=== PATIENT | female | born 1935 | race Caucasian/White ===

== ENCOUNTER 2023-12-31 08:43 | Emergency (ER) | payer MEDICARE, SELFPAY ==
[2023-12-31] VITALS (7 sets, daily range): BP systolic 174–194; BP diastolic 77–87
[2023-12-31 09:00] LABS: % Basophils 0.7 % (0-2); % Eosinophils 4.1 % (0-6); % Immature Granulocytes 0.2 % (0-0.5); % Lymphocytes 23.1 % (20.5-51.1); % Monocytes 8.7 % (1.7-9.3); % Neutrophils 63.2 % (42.2-75.2); Absolute Eosinophils 0.3 10^3/uL (0-0.7); Absolute Lymphocytes 1.4 10^3/uL (1.2-3.4); Absolute Monocytes 0.5 10^3/uL (0.1-0.6); Absolute Neutrophils 3.8 10^3/uL (1.4-6.5); Hematocrit 34.2 % (37.0-47.0); Hemoglobin 11.5 g/dL (12.0-16.0); Mean Corp Hgb Conc. 33.6 g/dL (33.0-37.0); Mean Corpuscular Hgb 31.3 pg (27.0-31.0); Mean Corpuscular Volume 93.2 fL (81.0-99.0); Mean Platelet Volume 10.5 fL (7.4-10.4); Nucleated Red Blood Cells % 0 %; Platelet Count 206 10^3/uL (130-400); Red Blood Cell Count 3.67 10^6/uL (4.20-5.40); Red Cell Dist. Width 12.3 % (11.5-14.5); White Blood Cell Count 6.1 10^3/uL (4.8-10.8)
--- NOTE | 2023-12-31 09:09 | ED.GENMED ---
History of Present Illness
General
Chief Complaint: Chest Pain
Source: patient and family
Exam Limitations: none
Time Seen by Provider: 12/31/23 08:49
Nursing documentation reviewed up to this point in time: agreed with
Travel History
Have you had any contact with someone who has COVID-19?: No
Do you have any symptoms of coronavirus? Fever > 100 degrees, chills, cough, shortness of breath, sore throat, loss of taste or smell, muscle aches, or headache?: No
History of Present Illness
History of Present Illness:
Patient with history of CAD, status post cardiac stent placement in February 2023, presents to ED secondary to intermittent chest pain over the past 3 days. Chest pain described as 'achy', left-sided, nonradiating, worse when standing or sitting up, but
mildly improved when laying down. Denies shortness of breath. Denies nausea or vomiting. Denies diaphoresis. Denies dizziness. Denies trauma. Denies fever or chills. Denies recent illness. Denies recent change in medications or diet.
Patient states that her current chest pain is different from what she experienced when she had a heart attack. She has an appointment with her primary [facility], Dr. Gallo next week.
Past History
Past History
ED Past Medical History: Cancer (Skin), HTN and Hypercholesterolemia; Negative CAD
ED Past Surgical History: Orthopedic
Social History
Tobacco: Former smoker
Alcohol: None
Drug: None
Personal:
Living: alone
Review of Systems
Review of Systems
Allergies reviewed?: Yes
All Other Systems: ROS reviewed and negative except as documented in HPI and ROS
Constitutional: Reports no symptoms
EENT: Reports no symptoms
Respiratory: Reports no symptoms; Denies trouble breathing
Cardiac: Reports chest pain
ABD/GI: Reports no symptoms; Denies abdominal pain, nausea, vomiting or diarrhea
: Reports no symptoms
Musculoskeletal: Reports no symptoms
Skin: Reports no symptoms
Neurological: Reports no symptoms
Phy Exam
Physical Exam
Physical Exam:
Physical Exam
General: no apparent distress, not acutely ill. afebrile.
Head: nc/at. eomi
Neck: supple. no meningeal signs.
Heart: s1/s2 regular rate and rhythm, no murmur. equal radial pulses.
Lungs: no acute respiratory distress. clear bilaterally
Abdomen: normal bowel sounds. not tender. mild epigastric tenderness to palpation.
Neuro: alert and oriented. no focal neurological deficits
Skin: no rash
Psychiatric: well kept. interactive and cooperative
Extremities: no edema. no calf tenderness
Scores
Heart Score for Chest Pain Patients
STEMI patient?: No
History: Slightly or Non-Suspicious
ECG: Normal
Age: >/= 65 years
Risk Factors: >/= 3 Risk Factors or History of CAD
Troponin: </= Normal Limit
Heart Score for Chest Pain Patients: 4
Heart Score Risk: 20.3% MACE over next 6 weeks
Course
Orders/Labs/Results
Orders:
Orders
12/31/23 08:54
Electrocardiogram (*1) Urgent
Reason for Study: Chest Pain
EKG- Treatment ONCE
12/31/23 08:55
Complete Blood Count/With Diff Urgent
Comprehensive Metabolic Panel Urgent
Lipase Urgent
Troponin I Urgent
12/31/23 09:21
Add On- LAB Urgent
Tests Added?: lipase
12/31/23 09:22
CR Chest Portable - 1 View Urgent
Comment:
Reason For Exam: chest pain
Reason Study Needs to be Portable: Patient Unstable
12/31/23 09:25
Nitroglycerin Sublingual [Nitrostat (Sublingual)] 0.4 mg SL NOW STA
12/31/23 09:37
US Abdomen Complete/Upper Urgent
Comment:
Reason For Exam: epigastric pain
12/31/23 09:42
Mag Hydrox/Al Hydrox/Simeth [Maalox] 30 ml Phenobarb/Hyoscy/Atropine/Scop [] 10 ml PO NOW
12/31/23 09:50
Mag Hydrox/Al Hydrox/Simeth [Maalox] 30 ml .ROUTE .STK-MED ONE
Phenobarb/Hyoscy/Atropine/Scop [] 10 ml .ROUTE .STK-MED ONE
12/31/23 11:54
Electrocardiogram (*1) Urgent
Reason for Study: Chest Pain
EKG- Treatment ONCE
12/31/23 11:59
Troponin I Urgent
Abnormal Lab Results
12/31/23
08:55
RBC 3.67 L 10^6/uL
(4.20-5.40)
Hgb 11.5 L g/dL
(12.0-16.0)
Hct 34.2 L %
(37.0-47.0)
MCH 31.3 H pg
(27.0-31.0)
MPV 10.5 H fL
(7.4-10.4)
BUN 47 H mg/dl
(7-17)
Creatinine 1.9 H mg/dL
(0.6-1.0)
Glucose 101 H mg/dl
(70-99)
12/31/23 08:55
12/31/23 08:55
Vital Signs
Initial and Last Documented VS:
Initial Vital Signs
BP
194/85
12/31/23 08:47
Last Documented Vital Signs
Temp Pulse Resp BP Pulse Ox
97.9 F 73 18 189/82 93
12/31/23 08:49 12/31/23 13:15 12/31/23 13:15 12/31/23 13:00 12/31/23 13:15
MDM/Problems Addressed
MDM/Problems Addressed:
Pt with an unremarkable workup in ED, including blood work and EKG, including repeat troponin. History and exam inconsistent with ACS, but more likely nonspecific abdominal discomfort, i.e. gastritis/reflux. Pt already has an appt with her primary
[facility] resistance early next week. Will return to ED with worsening symptoms. Pt otherwise is hemodynamically stable and appears comfortable at time of discharge, to the care of her daughter.
*EKG
Interpreted by ED Provider?: Yes
EKG Intrepretation Date: 12/31/23
Heart Rate: 70
Rate: normal
Rhythm: sinus
[place]: normal axis
Interval: normal interval
*Critical Care Note
Total Time (30-74mins, 75-104mins- exclusive of procedures): Not Applicable
ED Attending Note
-
Portions of this chart may have been created with voice recognition software.� Occasional wrong word or��sound alike� substitutions may have occurred due to the inherent limitations of voice recognition software.
Discharge Plan
Departure
Patient Disposition: Home (Routine Discharge)
Date of Disposition: 12/31/23
Time of Disposition: 13:20
Patient Status:: 201
Patient with high blood pressure during this ER visit?: Yes
Condition: Good
Discharge Problem:
Abdominal pain
Instructions: [place] Diet, Ulcer and Gastritis Diet, Abdominal Pain, Adult ED
Prescriptions:
No Action
duloxetine [Cymbalta] 20 mg Capsule,Delayed Release(Dr/Ec)
20 mg PO DAILY
aspirin 81 mg Tablet,Delayed Release (Dr/Ec)
81 mg PO DAILY
polyethylene glycol 3350 [Miralax] 17 gram/dose Powder
17 g PO DAILY PRN (Reason: constipation)
gabapentin 100 mg capsule
100 mg PO DAILY
furosemide 40 mg Tablet
40 mg PO DAILY 30 Days Qty: 30 0RF
pantoprazole 40 mg Tablet,Delayed Release (Dr/Ec)
40 mg PO DAILY 30 Days Qty: 30 0RF
cyanocobalamin (vitamin B-12) 1,000 mcg Tablet
1,000 mcg PO DAILY
fluticasone propionate 50 mcg/actuation [place],Suspension
1 spray INTRANASAL DAILY PRN (Reason: allergies)
cholecalciferol (vitamin D3) [Vitamin D3] 25 mcg (1,000 unit) Tablet
25 mcg PO DAILY
atorvastatin 40 mg tablet
40 mg PO DAILY
docusate sodium 100 mg Capsule
100 mg PO BID Qty: 0 0RF
sennosides [Senna Lax] 8.6 mg Tablet
17.2 mg PO HS Qty: 0 0RF
amlodipine 10 mg Tablet
10 mg PO DAILY Qty: 0 0RF
acetaminophen [Pain Relief ES (acetaminophen)] 500 mg Tablet
1,000 mg PO TID Qty: 0 0RF
famotidine 10 mg Tablet
10 mg PO DAILY PRN (Reason: gerd)
famotidine 10 mg Tablet
10 mg PO DAILY
metoprolol succinate 50 mg Tablet Extended Release 24 Hr
50 mg PO DAILY
bismuth subsalicylate [Pepto-Bismol] 262 mg/15 mL Suspension
524 mg PO Q6HPRN PRN (Reason: stomach upset)
Saline Nasal 0.65 % Aerosol,Donaldson
1 spray INTRANASAL DAILY
Patient Comments:
12/31/2023, alternating nostrils.
Systane (PF) 0.4-0.3 % [place]
1 drp BOTH EYES BID
PreserVision AREDS-2 250-90-40-1 mg Capsule
1 cap PO BID
lidocaine 4 % adhesive patch,medicated
1 patch topical BID
Patient Comments:
12/31/2023, on in AM/off at HS. Apply every day and evening shift.
sevelamer carbonate 800 mg tablet
800 mg PO TID
Referrals:
UNKNOWN - PT DOES,NOT KNOW [Family Provider] -
Activity Restrictions/Additional Instructions:
As discussed, please follow-up with your primary care physician and [facility] next week for reevaluation. Please return to ED with worsening symptoms. Please consider recommended dietary modification as well as use of acid reducing medication
as an outpatient, i.e. Pepcid/Prilosec/Protonix.
Interventions
Interventions:
*Risk Screen - Suicide Last Done: 12/31/23 08:51
*General Assessment Last Done: 12/31/23 08:51
*Neglect/Abuse Screening Last Done: 12/31/23 08:51
ED- Fall Risk Assessment Last Done: 12/31/23 08:57
*ED COVID-19 Vaccine History Last Done: 12/31/23 08:51
*Nursing Disposition Last Done: 12/31/23 13:37
ED- Cardiac Assessment Last Done: 12/31/23 08:53
Discharge Date and Time
Discharge Date/Time: 12/31/23 13:55
[2023-12-31 09:13] LABS: ALT (SGPT) 14 U/L (0-35); AST (SGOT) 19 U/L (14-36); Albumin 4.4 g/dl (3.5-5.0); Alkaline Phosphatase 102 U/L (38-126); Blood Urea Nitrogen 47 mg/dl (7-17); Calcium 9.7 mg/dl (8.4-10.2); Carbon Dioxide 30 mmol/L (22-30); Chloride 100 mmol/L (98-107); Glucose 101 mg/dl (70-99); Potassium 3.7 mmol/L (3.5-5.1); Sodium 140 mmol/L (135-145); Total Bilirubin 0.6 mg/dl (0.2-1.3); Total Protein 6.8 g/dl (6.3-8.2); eGFR 25.08
[2023-12-31 09:25] LABS: Troponin I 0.021 ng/ml
[2023-12-31] MEDS: NITROSTAT (SUBLINGUAL) 0.400000000000000022 MG SL (09:30)
[2023-12-31 09:37] LABS: Lipase 97 U/L (23-300)
[2023-12-31] MEDS: MAALOX 40 PO (09:51)
[2023-12-31 12:44] LABS: Troponin I 0.021 ng/ml
== END 2023-12-31 13:55 | disposition home or self-care (01) ==
LOC: EMR 08:43
PROVIDERS: EMERGENCY PHYSICIAN Emergency Medicine
DX: R10.9 Unspecified abdominal pain (principal); I10 Essential (primary) hypertension; E78.00 Pure hypercholesterolemia, unspecified; I25.2 Old myocardial infarction; Z85.828 Personal history of other malignant neoplasm of skin; Z87.891 Personal history of nicotine dependence; Z95.5 Presence of coronary angioplasty implant and graft
CPT/HCPCS: 99284; 71045; 76700; 80053; 83690; 84484; 85025; 93005

== ENCOUNTER → 2024-01-03 13:11 | Outpatient (REF) | payer MEDICARE, SELFPAY | LOC: HWRCS 13:11 | PROVIDERS: ATTENDING PHYSICIAN Internal Medicine | DX: I25.10 Atherosclerotic heart disease of native coronary artery without angina pectoris (principal); I10 Essential (primary) hypertension | CPT/HCPCS: 93306 ==

== ENCOUNTER 2024-04-06 15:31 | Inpatient (IN) | payer MEDICARE, SELFPAY ==
[2024-04-06 11:47] VITALS: BP 153/61
[2024-04-06 12:19] VITALS: BMI 21.3
--- NOTE | 2024-04-06 12:31 | ED.GENMED ---
History of Present Illness
General
Chief Complaint: Skin Problem
Source: patient and family
Time Seen by Provider: 04/06/24 12:20
Travel History
Have you had any contact with someone who has COVID-19?: No
Do you have any symptoms of coronavirus? Fever > 100 degrees, chills, cough, shortness of breath, sore throat, loss of taste or smell, muscle aches, or headache?: No
History of Present Illness
History of Present Illness:
88-year-old female with past medical history of hypertension, [place] 1 year ago presenting to the emergency department for evaluation of left lower leg pain, edema and ecchymosis that started approximately 2 days ago. Triage notes that the 'rash is
itchy' however patient states she does not have any rash it is more pain and discomfort to the left lower leg. Patient states she does not recall any trauma or falls. She takes a daily 81 mg aspirin but no other antiplatelet or anticoagulant
medications. Patient is a former smoker from at least 30 to 40 years ago. No other known history of peripheral vascular or peripheral arterial disease. Patient has no other concerns.
Past History
Past History
ED Past Medical History: Cancer (Skin), HTN and Hypercholesterolemia; Negative CAD
ED Past Surgical History: Orthopedic
Social History
Tobacco: Former smoker
Alcohol: None
Drug: None
Personal:
Living: alone
Review of Systems
Review of Systems
All Other Systems: ROS reviewed and negative except as documented in HPI and ROS
Phy Exam
Physical Exam
Physical Exam:
GENERAL: Alert , in no apparent distress
EYE: conjunctiva clear
NECK: Supple, no significant adenopathy.
ENT: o/p clr, mmm.
CARDIAC: Regular rate and rhythm
LUNGS: Clear breath sounds bilaterally, no acute respiratory distress, no wheezes/rales/rhonchi
NEUROLOGICAL: Alert and oriented
SKIN: Warm and dry, skin intact.
MUSCULOSKELETAL: well perfused. Ecchymosis to the posteromedial left gastrocnemius with what appears to be a hematoma versus palpable cord underlying. It is tender to palpation. There is mild pitting edema to the ankles bilaterally. Easily
palpable pedal and tibial pulses bilateral. Cap refill less than 2 seconds. Sensation grossly intact to light touch bilateral.
PSYCH: Normal and appropriate interaction.
Scores
Heart Failure Risk
Heart Failure Risk Score: Not Applicable
Heart Score for Chest Pain Patients
STEMI patient?: Not applicable
Withdrawal Assessment of Alcohol
Withdrawal Assessment Completed?: Not applicable
Course
Orders/Labs/Results
Orders:
Orders
04/06/24 12:29
Venous Doppler Lwr Ext Left [US Periph Venous LOWER Ext LT] Urgent
Comment:
Reason For Exam: ecchymosis, pain, edema
04/06/24 12:57
Basic Metabolic Panel Urgent
Complete Blood Count/With Diff Urgent
Creatine Phosphokinase Urgent
Comment: ADD ON
Ferritin Urgent
Comment: ADD ON
Folate Urgent
Comment: ADD ON
Iron Urgent
Comment: ADD ON
Total Iron Binding Urgent
Comment: ADD ON
Vitamin B12 Urgent
Comment: ADD ON
04/06/24 13:31
Add On- LAB Urgent
Tests Added?: PT/INR, PTT
04/06/24 13:39
PT/INR [Prothrombin Time] Urgent
PTT Urgent
Comment: ADD ON
04/06/24 14:11
Add On- LAB Urgent
Tests Added?: CPK
04/06/24 15:00
Add On- LAB Urgent
Tests Added?: b12 folate iron tibc ferritin
Cholesterol Lowering
At Your Request: Limited Participation
Does patient need a safe tray?: No
Cholesterol Lowering: Sodium, 2 Gram
Urine Osmolality Random [Osmolality, Random Urine] Routine
Urine Sodium Routine
0.9% Sodium Chloride 500 ml [Nss] 500 ml IV 60 mls/hr
Hemetest Stools As Directed
Renal & Bladder US [US Renal With Bladder] Routine
Comment:
Reason For Exam: jolie left flank pain
04/06/24 15:02
Admit/Transfer Patient As Directed
Co-Sign Provider:
Level of Care: Inpatient admission
Assign to:: Medical/Surgical
Physician / Group: lyndsey torres
Diagnosis: L leg contusion, anemia concern poss gi bleed, jolie on ckd, hypo K
Reason for Hospitalization: L leg contusion, anemia concern poss gi bleed, jolie on ckd, hypo K
Expected length of stay greater than two midnights?: Yes
ELOS- Estimated Length of Stay in days: 4
I certify the patient meets the requirements for IP care: Yes
Code Status As Directed
Resuscitation Status: Do not resuscitate
Reached after discussion with pt or family/Healthcare POA: Yes
Based on pt advanced directive or healthcare POA form: Yes
Decision communicated with: Per patient with daughter Gisselle at bedside
DNR Bracelet Application ONCE
04/06/24 15:15
Type+Screen Urgent
04/06/24 15:23
Urine Creatinine Routine
04/06/24 16:24
Acetaminophen [Tylenol] 500 mg PO TID
HydrALAZINE [Apresoline] 50 mg PO TID
fluticasone propionate 1 spray NASAL DAILYPRN PRN
04/06/24 16:24
Activity As Directed
Activity Level: With Assistance
Intake/ Output As Directed
Frequency: Per unit guidelines
Pneumatic Compression Sleeves As Directed
Type: Knee high
Precautions As Directed
Type of Precautions: Other
Comment: fall
Vascular Checks As Directed
Location: LLE
Frequency: q4h
Vital Signs As Directed
Frequency: Per unit guidelines
Weight As Directed
Frequency: Daily
Ot Eval And Treat Routine
Pt Eval And Treat Routine
Activity Level: With Assistance
DX Deep Vein Thrombosis Video Routine
04/06/24 16:30
Sevelamer Carbonate [Renvela] 800 mg PO AC
04/06/24 16:39
Famotidine [Pepcid] 10 mg PO DAILYPRN PRN
04/06/24 20:00
Artificial Tears (Pf) [Refresh Eye Drops (Pf)] See Dose Instructions BOTH EYES BID
Vit C/Vit E/Lutein/Min/[place]-3 [Ocuvite Softgel] 1 cap PO BID
04/06/24 22:00
Docusate W/Senna [Senokot-S] 2 tablet PO HS
04/07/24 06:00
Complete Blood Count/With Diff IN AM
Comprehensive Metabolic Panel IN AM
04/07/24 08:00
Amlodipine [Norvasc] 5 mg PO DAILY
Atorvastatin [Lipitor] 40 mg PO DAILY
Cholecalciferol (Vitamin D3) [VITAMIN D3 (cholecalciferol)] 25 mcg PO DAILY
Cyanocobalamin [Vitamin B-12] 1,000 mcg PO DAILY
Duloxetine Delayed Release [Cymbalta Delayed Release] 20 mg PO DAILY
Gabapentin [Neurontin] 100 mg PO DAILY
Metoprolol Xl [Toprol Xl] 50 mg PO DAILY
Pantoprazole [Protonix] 40 mg PO DAILY
Sodium Chloride [[place], Saline Mist] See Dose Instructions NASAL DAILY
04/08/24 06:00
Complete Blood Count/With Diff IN AM
Comprehensive Metabolic Panel IN AM
04/09/24 06:00
Complete Blood Count/With Diff IN AM
Comprehensive Metabolic Panel IN AM
04/10/24 06:00
Complete Blood Count/With Diff IN AM
Comprehensive Metabolic Panel IN AM
Abnormal Lab Results
04/06/24
12:57
RBC 3.33 L 10^6/uL
(4.20-5.40)
Hgb 9.9 L g/dL
(12.0-16.0)
Hct 29.3 L %
(37.0-47.0)
MPV 10.6 H fL
(7.4-10.4)
Absolute Lymphs (auto) 0.9 L 10^3/uL
(1.2-3.4)
Lymphocytes % 16.1 L %
(20.5-51.1)
Monocytes % 10.9 H %
(1.7-9.3)
Potassium 3.0 L mmol/L
(3.5-5.1)
Chloride 97 L mmol/L
(98-107)
Carbon Dioxide 31 H mmol/L
(22-30)
BUN 50 H mg/dl
(7-17)
Creatinine 2.5 H mg/dL
(0.6-1.0)
% Saturation 14 L %
(20-50)
Vitamin B12 962 H pg/ml
(239-931)
04/06/24 12:57
04/06/24 12:57
Vital Signs
Initial and Last Documented VS:
Initial Vital Signs
Temp Pulse Resp BP Pulse Ox
98.6 F 72 16 153/61 98
04/06/24 11:47 04/06/24 11:47 04/06/24 11:47 04/06/24 11:47 04/06/24 11:47
Last Documented Vital Signs
Temp Pulse Resp BP Pulse Ox
98.3 F 74 16 178/76 96
04/06/24 16:35 04/06/24 16:35 04/06/24 16:35 04/06/24 16:35 04/06/24 16:35
MDM/Problems Addressed
Differential Diagnosis Includes:
Hematoma, DVT, peripheral vascular disease, peripheral arterial disease, thrombocytopenia
MDM/Problems Addressed:
88-year-old female presenting emergency department for evaluation of left lower leg pain and swelling over the last 2 days. Noted ecchymosis to the affected area. Right lower extremity unaffected. No signs of infection. Extremity is otherwise
warm and well-perfused. Will check labs and ultrasound. Reassessment following
Chronic conditions affecting care: CAD
*Radiology
Radiology exam reviewed: radiology read reviewed (No DVT. Approximately 5 cm hematoma)
*Pulse Oximetry
Patient hypoxic: no
*Critical Care Note
Total Time (30-74mins, 75-104mins- exclusive of procedures): Not Applicable
Data Reviewed
Review of Other/Old Records Reveals: Labs and Records
Source: patient and records
Patient Management
Discussion with other providers: Hospitalist
Escalation/DeEscalation of care consider admission/obs:
Patient's ultrasound is negative for DVT but does show a near 5 cm hematoma. Patient's hemoglobin is downtrending from around 10.8-11.1 to 9.9 and her creatinine which is usually around 1.2 is now 2.5. I added on a CPK for possibility of muscle
tissue breakdown leading to patient's acute kidney injury however this was also unremarkable. Due to her worsening anemia combined with her renal dysfunction will admit for continued evaluation and treatment. Hospitalist team is aware and accepts
for continued evaluation
ED Attending Note
-
Portions of this chart may have been created with voice recognition software.� Occasional wrong word or��sound alike� substitutions may have occurred due to the inherent limitations of voice recognition software.
Discharge Plan
Departure
Patient Disposition: Admit
Date of Disposition: 04/06/24
Time of Disposition: 14:13
Presentation/result/management discussed w/ accepting MD/DO: Hospitalist
Discharge Problem:
JOLIE (acute kidney injury), Anemia, Hematoma of left lower leg
Interventions
Interventions:
*Risk Screen - Suicide Last Done: 04/06/24 12:19
*General Assessment Last Done: 04/06/24 12:19
*Neglect/Abuse Screening Last Done: 04/06/24 12:19
*ED COVID-19 Vaccine History Last Done: 04/06/24 11:47
*Nursing Disposition Last Done: 04/06/24 16:22
Discharge Date and Time
Discharge Date/Time: 04/06/24 16:23
[2024-04-06 13:05] LABS: % Basophils 0.6 % (0-2); % Eosinophils 2.8 % (0-6); % Immature Granulocytes 0.4 % (0-0.5); % Lymphocytes 16.1 % (20.5-51.1); % Monocytes 10.9 % (1.7-9.3); % Neutrophils 69.2 % (42.2-75.2); Absolute Eosinophils 0.2 10^3/uL (0-0.7); Absolute Lymphocytes 0.9 10^3/uL (1.2-3.4); Absolute Monocytes 0.6 10^3/uL (0.1-0.6); Absolute Neutrophils 3.7 10^3/uL (1.4-6.5); Hematocrit 29.3 % (37.0-47.0); Hemoglobin 9.9 g/dL (12.0-16.0); Mean Corp Hgb Conc. 33.8 g/dL (33.0-37.0); Mean Corpuscular Hgb 29.7 pg (27.0-31.0); Mean Platelet Volume 10.6 fL (7.4-10.4); Nucleated Red Blood Cells % 0 %; Platelet Count 212 10^3/uL (130-400); Red Blood Cell Count 3.33 10^6/uL (4.20-5.40); Red Cell Dist. Width 13.9 % (11.5-14.5); White Blood Cell Count 5.3 10^3/uL (4.8-10.8)
[2024-04-06 13:26] LABS: Blood Urea Nitrogen 50 mg/dl (7-17); Calcium 8.8 mg/dl (8.4-10.2); Carbon Dioxide 31 mmol/L (22-30); Chloride 97 mmol/L (98-107); Estimated Creatinine Clearance 13 ml/min; Glucose 92 mg/dl (70-99); Sodium 137 mmol/L (135-145); eGFR 18.05
[2024-04-06 13:59] LABS: INR 0.98
[2024-04-06 14:15] VITALS: BP 169/70
--- NOTE | 2024-04-06 14:24 | HPS.HSE ---
Addendum entered and electronically signed by Jhonatan Byrd MD 04/06/24 15:22:
I saw and examined the patient.
The [employer]'s note was reviewed and I agree with the note.
88-year-old female past medical history of tobacco usage, arthritis, fracture, primary hypertension, hyperlipidemia who is presented with leg pain. Patient denies any trauma or accidents or falls. Denies any numbing or tingling. Currently on baby
aspirin. Per daughter family is concerned for prolonged hospital stay and hospital-acquired delirium. Discussed with daughter plan is to monitor creatinine and discharge pending stabilization of renal function.
Comment:
General: No Apparent Distress, Comfortable, Conversant and Other (Baseline oriented to name and daughter but not year, place or past medical history)
HEENT: NormoCephalic, Anicteric, Moist mucous membranes,
Respiratory: Clear; No Wheezes, Rales or Rhonchi
Cardiac: S1/S2, Regular Rhythm and Peripheral Edema (Chronic bilateral lower legs trace); No Murmur, Rub or Gallop
GI: Soft, Non Distended, Normal Bowel Sounds and Tender (Left lateral abdomen TTP
Musculoskeletal: No Clubbing, No Cyanosis, Edema, Left Lower Extremity (Chronic bilateral lower legs trace) and Edema, Right Lower Extremity (Chronic bilateral lower legs trace); No Edema, Left Upper Extremity or Edema, Right Upper Extremity
Skin: Warm, Dry and Rash (Chronic macular scattered circular rash to legs and arms slight pink in color, contusion left lower medial aspect of calf tender to touch)
Neuro: Awake, Alert, Oriented (Baseline oriented to name and daughter but not year, place or past medical history), No Motor Deficits, Nonfocal/grossly intact, Cranial Nerves Intact and No Sensory Deficits; No Slurred Speech, Facial Droop, Tremors
or Sedated
Psych: Calm
Impression
Left lower extremity pain likely secondary to hematoma
JOLIE on CKD
Primary hypertension
Hyperlipidemia
Mild cognitive impairment/suspected dementia unknown if with behavioral disturbances
Plan
Pain control
Vascular check left lower extremity
Trend hemoglobin
Anemia panel and heme test stools
Check urine studies
Bladder scan
Renal bladder ultrasound
Hold diuretics and nephrotoxic medication
Gentle IV fluids
DVT prophylaxis with venous foot pumps
Discussed with patient daughter at bedside in details
Original Note:
Family Physician
-
Family Physician: Cody Suarez
Chief Complaint
-
Left leg pain, ecchymosis, black stools, left lateral abdominal pain along the ureter
History of Present Illness
88-year-old female from [facility] personal-care complaining of left lower leg pain, edema and ecchymosis that started approximately 2 days ago. She also reports black stools approximately 1 to 3 days. She denies taking Pepto-Bismol although this
is listed on her medication list as needed she is also on aspirin 81 mg daily she has history of memory impairment knows it is still spring when asked the year she replied 43 she is oriented to her daughter Gisselle at bedside. She denies any
recent trauma, or falls. She reports left lateral abdominal pain along left ureter on palpation along with some increased yellow urine. she states she has a chronic macular scattered circular rash that comes and goes to upper arms and lower legs.
Her daughter also states she has chronic leg edema for which she wears JATINDER stockings. She denies fever, chills, chest pain, palpitations, shortness breath, cough, nausea, vomiting, diarrhea, dysuria. She has past medical history of former
smoker,VT CAD angioplasty August 2023 HTN, HLD, skin CA-basal/squamous cell, memory impairment, falls, chronic ambulatory dysfunction uses walker
Medical History
Past Medical History
Past Medical History: Reports Other
Additional Past Medical History:
ASCVD
Chronic HFrEF
Hypertension
HLD
CKD III
GERD / Martin's Esophagus
Anxiety / Depression
Falls
Chronic memory impairment�moderate
chronic ambulatory dysfunction uses walker
Glaucoma
Past Surgical History: Reports Other
Additional Past Surgical History:
PTCA with Stent
Right Hip ORIF
Left Patellar ORIF
Revision of L Patella ORIF
Skin Cancer Excision
Social History
Tobacco: Former Smoker (Quit smoking 22 years ago. Approx 40 pack years total use.)
Alcohol: Occasional
Drug: None
Living: Other ([facility] personal-care)
Family History
Family History: Not pertinent
Allergies / Home Medications
Allergies reflects when Allergies were last updated in [employer].
Home Medications with original date entered in [employer]
Allergy/Medication List:
Allergies
Allergy/AdvReac Type Severity Reaction Status Date / Time
tramadol Allergy Pharmacy Verified 04/06/24 11:50
to Review
Home Medications
aspirin 81 mg tablet,delayed release 81 mg PO DAILY Blood clot prevention/tx 09/22/22
duloxetine 20 mg capsule,delayed release (Cymbalta) 20 mg PO DAILY Mental Health/Anxiety 09/22/22
polyethylene glycol 3350 17 gram/dose oral powder (Miralax) 17 g PO DAILYPRN PRN constipation 09/22/22
gabapentin 100 mg capsule 100 mg PO DAILY Pain 03/20/23
furosemide 40 mg tablet 40 mg PO DAILY Fluid retention/Swelling 30 days #30 tabs 03/27/23
pantoprazole 40 mg tablet,delayed release 40 mg PO DAILY Gastrointestinal issue 30 days #30 tabs 03/27/23
atorvastatin 40 mg tablet 40 mg PO DAILY High cholesterol 08/30/23
cholecalciferol (vitamin D3) 25 mcg (1,000 unit) tablet (Vitamin D3) 25 mcg PO DAILY Supplement 08/30/23
cyanocobalamin (vitamin B-12) 1,000 mcg tablet 1,000 mcg PO DAILY Supplement 08/30/23
fluticasone propionate 50 mcg/actuation nasal spray,suspension 1 spray intranasal DAILYPRN PRN allergies 08/30/23
bismuth subsalicylate 262 mg/15 mL oral suspension (Pepto-Bismol) 524 mg PO Q6HPRN PRN stomach upset 12/31/23
famotidine 10 mg tablet 10 mg PO DAILY 12/31/23
famotidine 10 mg tablet 10 mg PO DAILY PRN gerd 12/31/23
lidocaine 4 % topical patch 1 patch topical DAILY apply to right hip 12/31/23
metoprolol succinate 50 mg tablet,extended release 24 hr 50 mg PO DAILY 12/31/23
peg 400-propylene glycol (PF) 0.4 %-0.3 % eye drops in a dropperette (Systane (PF)) 1 drp BOTH EYES BID 12/31/23
sevelamer carbonate 800 mg tablet 800 mg PO AC 12/31/23
sodium chloride 0.65 % nasal spray aerosol (Saline Nasal) 1 spray intranasal DAILY 12/31/23
vit C 250 mg-vit E 90 mg-zinc 40 mg-copper 1 [id number] capsule (PreserVision AREDS-2) 1 cap PO BID 12/31/23
acetaminophen 500 mg tablet (Pain Relief Extra Strength (acetaminophen)) 500 mg PO TID 04/06/24
amlodipine 10 mg tablet 5 mg PO DAILY 04/06/24
hydralazine 50 mg tablet 50 mg PO TID 04/06/24
sennosides 8.6 mg-docusate sodium 50 mg tablet (Senna-S) 2 tab-cap PO HS 04/06/24
Review of Systems
-
History Source: Patient and Family (Daughter Gisselle at bedside)
A 12 point ROS was completed and negative except as noted: Yes
Constitutional: Denies Fever or Fatigue
EENT: Denies Sore Throat or Runny Nose
Respiratory: Denies Cough or Trouble Breathing
Cardiac: Denies Chest Pain, Diaphoresis, Palpitations or Syncope
Abdomen/GI: Reports Abdominal Pain (Left lateral abdomen) and Black Stools (1 to 3 days); Denies Nausea, Vomiting, Diarrhea, Constipated or Bloody Stools
: Reports Flank Pain (Left-sided); Denies Dysuria, Frequency, Incontinence, Difficulty Voiding, Urgency or Bleeding
Musculoskeletal: Reports Edema (Chronic bilateral lower legs trace); Denies Joint Pain
Skin: Reports Other (Left lower extremity medial aspect of calf with small contusion tender to touch); Denies Itching or Rash
Neurological: Denies Dizzy, Headache or Weakness
Endocrine: Reports No Symptoms
Hematologic/Lymphatic: Reports No Symptoms
Psych: Reports Calm
Physical Exam
Vital Signs
Vital Signs
Temp Pulse Resp BP Pulse Ox
98.6 F 70 16 169/70 95
04/06/24 11:47 04/06/24 14:15 04/06/24 14:15 04/06/24 14:15 04/06/24 14:15
Physical Exam
General: No Apparent Distress, Comfortable, Conversant and Other (Baseline oriented to name and daughter but not year, place or past medical history)
HEENT: NormoCephalic, Anicteric, Moist mucous membranes, Tracheostomy Collar, PERRLA, [place] Conjunctivae and No Ptosis
Respiratory: Clear; No Wheezes, Rales or Rhonchi
Cardiac: S1/S2, Regular Rhythm and Peripheral Edema (Chronic bilateral lower legs trace); No Murmur, Rub or Gallop
GI: Soft, Non Distended, Normal Bowel Sounds and Tender (Left lateral abdomen along left ureter tender to palpation)
Rectal: Deferred by Provider
Genito-urinary: Costovertebral angle tend (Left)
Musculoskeletal: No Clubbing, No Cyanosis, Edema, Left Lower Extremity (Chronic bilateral lower legs trace) and Edema, Right Lower Extremity (Chronic bilateral lower legs trace); No Edema, Left Upper Extremity or Edema, Right Upper Extremity
Skin: Warm, Dry and Rash (Chronic macular scattered circular rash to legs and arms slight pink in color, contusion left lower medial aspect of calf tender to touch)
Neuro: Awake, Alert, Oriented (Baseline oriented to name and daughter but not year, place or past medical history), No Motor Deficits, Nonfocal/grossly intact, Cranial Nerves Intact and No Sensory Deficits; No Slurred Speech, Facial Droop, Tremors
or Sedated
Psych: Calm
Laboratory Results
-
04/06/24 12:57
04/06/24 12:57
Laboratory Results
PT 13.0 Sec (11.4-14.6) 04/06/24 13:39
INR 0.98 04/06/24 13:39
APTT 30.0 Sec (23.4-35.0) 04/06/24 13:39
Impression/Plan
-
Impression/plan:
Admit to [facility]
#Hematoma left lower leg unclear etiology likely injury(patient cannot recall due to memory impairment)
Hgb 9.9, MCV 88, PLT 212-baseline Hgb 11.28 December 2023
-Check creatinine kinase
-Hold aspirin
Ultrasound left lower extremity: No DVT. 4.7 cm medial left calf hematoma/seroma
#JOLIE on CKD 3B/4A
Creat 2.5 > from 1.9 12/31/2023
-Hold Lasix 40 mg daily
-Continue sevelamer 800 mg with meals
- renal/ bladder ultrasound
- urine Na urine crea
Iv NSs 60 x500 cc
#Anemia with reported black stools concern for lower GI bleed
Hgb 9.9 prior 11.28 December 2023
-Heme check stools
-Check B12, folate, iron panel
-Continue B12 supplement
-Hold as needed Pepto-Bismol
#Hypokalemia likely secondary to volume depletion/diuretics
K 3.0
KCl 40 mEq now follow BMP
#Chronic memory impairment with Falls
Oriented to name and daughter but not year, month
-Fall precautions
# chronic macular rash arms legs
#CAD/ PTCA with stent August 2023
#Chronic moderate MR
-Hold current aspirin
-Continue atorvastatin and metoprolol succinate 50 mg daily
#Chronic heart failure reduced EF
#Chronic peripheral edema
I/O, daily weights
-Hold Lasix 40 mg daily
2D echo 01/03/2024 EF 40-45% mild versus moderate reduced LVSF. Basal to mid inferior and inferior lateral hypokinesis, moderate MR
#HTN
BP 169/70
-Continue metoprolol succinate 50 mg daily, hydralazine 50 mg p.o. 3 times daily
#GERD
-Continue Pepcid 10 mg daily, Protonix 40 mg daily
#Chronic constipation
-Continue daily senna 2 tabs at bedtime as needed MiraLAX
#Ex-smoker quit 23 years ago
Prior 1 pack a day 50 years
#Arthritis-unknown type
-Continue gabapentin 100 mg daily
#Anxiety
Continue Cymbalta 20 mg daily
#Skin CA status post Mohs
#Glaucoma-continue Systane eyedrops, PreserVision
#Chronic ambulatory dysfunction
Uses walker at baseline
Consult PT/OT
DVT prophylaxis
SCDs
DNR per patient with daughter Gisselle at bedside
[2024-04-06 14:34] LABS: Creatine Phosphokinase 53 U/L (30-135)
[2024-04-06 15:39] LABS: Iron 47 ug/dl (37-170)
[2024-04-06 15:48] LABS: Percent Saturation 14 % (20-50); Total Iron Binding Capacity 317 ug/dl (265-497)
[2024-04-06 16:30] LABS: Ferritin 65.6 ng/ml (11.1-264.0)
--- NOTE | 2024-04-06 16:30 | PTCARENOTE ---
Received patient from ED via stretcher. AAOx2, disoriented to time. Forgetful. Bed alarm in place. Assessed and oriented to room. Family at bedside. Call lara in close reach.
[2024-04-06 16:35] VITALS: BP 178/76
[2024-04-06 16:36] VITALS: BMI 19.9
[2024-04-06 17:01] LABS: Folate 14.2 ng/ml (2.76-20); Vitamin B12 962 pg/ml (239-931)
[2024-04-06] MEDS: NSS 500 IV (17:05)
[2024-04-06] MEDS: TYLENOL 500 MG PO ×2 (17:06→21:08)
[2024-04-06] MEDS: RENVELA 800 MG PO (17:06)
[2024-04-06] MEDS: APRESOLINE 50 MG PO ×2 (17:54→21:08)
[2024-04-06 18:47] LABS: Osmolality Urine 350 mOsm/kg (300-900)
[2024-04-06 19:11] LABS: Urine Sodium 83 mmol/L (30-90)
[2024-04-06] MEDS: OCUVITE SOFTGEL 1 CAP PO (21:01)
[2024-04-06] MEDS: REFRESH EYE DROPS (PF) 10 DROPS BOTH EYES (21:01)
[2024-04-06] MEDS: SENOKOT-S 2 TABLET PO (21:08)
[2024-04-06 23:30] VITALS: BP 135/54
[2024-04-07 07:22] LABS: % Basophils 0.6 % (0-2); % Eosinophils 3.8 % (0-6); % Immature Granulocytes 0.6 % (0-0.5); % Lymphocytes 22.9 % (20.5-51.1); % Monocytes 11.6 % (1.7-9.3); % Neutrophils 60.5 % (42.2-75.2); Absolute Eosinophils 0.2 10^3/uL (0-0.7); Absolute Lymphocytes 1.1 10^3/uL (1.2-3.4); Absolute Monocytes 0.6 10^3/uL (0.1-0.6); Hematocrit 28.7 % (37.0-47.0); Hemoglobin 9.7 g/dL (12.0-16.0); Mean Corp Hgb Conc. 33.8 g/dL (33.0-37.0); Mean Corpuscular Hgb 29.9 pg (27.0-31.0); Mean Corpuscular Volume 88.6 fL (81.0-99.0); Mean Platelet Volume 10.6 fL (7.4-10.4); Nucleated Red Blood Cells % 0 %; Platelet Count 193 10^3/uL (130-400); Red Blood Cell Count 3.24 10^6/uL (4.20-5.40); Red Cell Dist. Width 13.7 % (11.5-14.5)
[2024-04-07 07:26] VITALS: BP 160/72
[2024-04-07 07:56] LABS: ALT (SGPT) < 10 U/L (0-35); AST (SGOT) 17 U/L (14-36); Albumin 3.6 g/dl (3.5-5.0); Alkaline Phosphatase 106 U/L (38-126); Blood Urea Nitrogen 46 mg/dl (7-17); Calcium 8.9 mg/dl (8.4-10.2); Carbon Dioxide 30 mmol/L (22-30); Chloride 100 mmol/L (98-107); Estimated Creatinine Clearance 14 ml/min; Glucose 94 mg/dl (70-99); Potassium 2.9 mmol/L (3.5-5.1); Sodium 139 mmol/L (135-145); Total Bilirubin 0.6 mg/dl (0.2-1.3); Total Protein 5.8 g/dl (6.3-8.2); eGFR 19.94
[2024-04-07] MEDS: OCUVITE SOFTGEL 1 CAP PO ×2 (08:20→20:44)
[2024-04-07] MEDS: PROTONIX 40 MG PO (08:20)
[2024-04-07] MEDS: TYLENOL 500 MG PO ×3 (08:21→22:19)
[2024-04-07] MEDS: REFRESH EYE DROPS (PF) 1 DROPS BOTH EYES ×2 (08:21→22:19)
[2024-04-07] MEDS: VITAMIN D3 (cholecalciferol) 25 MCG PO (08:21)
[2024-04-07] MEDS: VITAMIN B-12 1000 MCG PO (08:21)
[2024-04-07] MEDS: OCEAN, SALINE MIST 1 SPRAYS NASAL (08:21)
[2024-04-07] MEDS: LIPITOR 40 MG PO (08:21)
[2024-04-07] MEDS: TOPROL XL 50 MG PO (08:21)
[2024-04-07] MEDS: CYMBALTA DELAYED RELEASE 20 MG PO (08:21)
[2024-04-07] MEDS: NORVASC 5 MG PO (08:21)
[2024-04-07] MEDS: APRESOLINE 50 MG PO ×3 (08:21→22:19)
[2024-04-07] MEDS: NEURONTIN 100 MG PO (08:21)
[2024-04-07] MEDS: KCL ELIXIR 20 MEQ PO (08:24)
[2024-04-07] MEDS: RENVELA 800 MG PO ×3 (08:25→16:14)
[2024-04-07] MEDS: KCL 270 MEQ IV (08:36)
[2024-04-07 11:07] VITALS: BP 129/53; PULSE 78
--- NOTE | 2024-04-07 11:22 | W.PN.HOSP.TC ---
Today's Communication/Plan
-
repeat urine studies
pt/ot
monitor BP
Assessment / Plan
Assessment / Plan
General: No Apparent Distress, Comfortable, Conversant and Other (Baseline oriented to name and daughter but not year, place or past medical history)
HEENT: NormoCephalic, Anicteric, Moist mucous membranes,
Respiratory: Clear; No Wheezes, Rales or Rhonchi
Cardiac: S1/S2, Regular Rhythm and Peripheral Edema (Chronic bilateral lower legs trace); No Murmur, Rub or Gallop
GI: Soft, Non Distended, Normal Bowel Sounds and Tender (Left lateral abdomen TTP
Musculoskeletal: No Clubbing, No Cyanosis, Edema, Left Lower Extremity (Chronic bilateral lower legs trace) and Edema, Right Lower Extremity (Chronic bilateral lower legs trace); No Edema, Left Upper Extremity or Edema, Right Upper Extremity
Skin: Warm, Dry and Rash (Chronic macular scattered circular rash to legs and arms slight pink in color, contusion left lower medial aspect of calf tender to touch)
Neuro: Awake, Alert, Oriented (Baseline oriented to name and daughter but not year, place or past medical history), No Motor Deficits, Nonfocal/grossly intact, Cranial Nerves Intact and No Sensory Deficits; No Slurred Speech, Facial Droop, Tremors
or Sedated
Psych: Calm
#Hematoma left lower leg unclear etiology likely injury(patient cannot recall due to memory impairment)
Hgb 9.9, MCV 88, PLT 212-baseline Hgb 11.28 December 2023
-Check creatinine kinase- wnl
-Hold aspirin
-Ultrasound left lower extremity: No DVT. 4.7 cm medial left calf hematoma/seroma
-trend hgb for now. no acute need for transfusion. Neurovascular check.
#JOLIE on CKD 3B/4A
Creat 2.5 > from 1.9 12/31/2023
-Hold Lasix 40 mg daily
-Continue sevelamer 800 mg with meals
-renal/ bladder ultrasound negative for obstruction
-s/p 500cc NS on admission
-repeat urine studies and check urine eos
-If no improvement may need nephro input
#Anemia with reported black stools concern for lower GI bleed
Hgb 9.9 prior 11.28 December 2023
-Heme check stools
-Check B12, folate, iron panel
-Continue B12 supplement
-Hold as needed Pepto-Bismol
#Hypokalemia likely secondary to volume depletion/diuretics
K at 2.9
replete po/iv
#Chronic memory impairment with Falls
Oriented to name and daughter but not year, month
-Fall precautions
# chronic macular rash arms legs
#CAD/ PTCA with stent August 2023
#Chronic moderate MR
-Hold current aspirin
-Continue atorvastatin and metoprolol succinate 50 mg daily
#Chronic heart failure reduced EF
#Chronic peripheral edema
I/O, daily weights
-Hold Lasix 40 mg daily
2D echo 01/03/2024 EF 40-45% mild versus moderate reduced LVSF. Basal to mid inferior and inferior lateral hypokinesis, moderate MR
#HTN Primary
-Continue metoprolol succinate 50 mg daily, hydralazine 50 mg p.o. 3 times daily
-adjust meds prn
#GERD
-Continue Pepcid 10 mg daily, Protonix 40 mg daily
#Chronic constipation
-Continue daily senna 2 tabs at bedtime as needed MiraLAX
#Ex-smoker quit 23 years ago
Prior 1 pack a day 50 years
#Arthritis-unknown type
-Continue gabapentin 100 mg daily
#Anxiety
Continue Cymbalta 20 mg daily
#Skin CA status post Mohs
#Glaucoma-continue Systane eyedrops, PreserVision
#Chronic ambulatory dysfunction
Uses walker at baseline
Consult PT/OT
DVT prophylaxis
SCDs
DNR per patient with daughter Gisselle at bedside
d/w with 2 daughters at bedside in details on 04/07
PT/OT
Anticipated Discharge: Within 24 hours
Subjective/Interval History
-
Date of Service: April 07, 2024
feeling tired
eating breakfast
Objective Data
-
Labs:
Laboratory Results
04/07/24
06:45
WBC 5.0
Hgb 9.7 L
Hct 28.7 L
Plt Count 193
Sodium 139
Potassium 2.9 L
Chloride 100
Carbon Dioxide 30
BUN 46 H
Creatinine 2.3 H
Glucose 94
Calcium 8.9
Total Bilirubin 0.6
AST 17
ALT < 10
Alkaline Phosphatase 106
Vital Signs:
Vital Signs
Temp Pulse Resp BP Pulse Ox
97.9 F 76 16 160/72 95
04/07/24 07:26 04/07/24 07:26 04/07/24 07:26 04/07/24 07:26 04/07/24 08:20
I&O
04/06/24 04/07/24 04/08/24
06:59 06:59 06:59
Intake Total 60 / 60
Balance 60 / 60
--- NOTE | 2024-04-07 11:23 | W.PN.UPDATE ---
Update Note
Progress Note Update
for H&P billing purpose
[2024-04-07 11:24] VITALS: BP 129/53; PULSE 70
[2024-04-07 15:20] VITALS: BP 154/72
[2024-04-07 15:34] LABS: Urine Sodium 21 mmol/L (30-90)
[2024-04-07 16:17] LABS: Body Fluid for Eosinophils 2% Eosinophils seen
[2024-04-07] MEDS: REFRESH EYE DROPS (PF) 10 DROPS BOTH EYES (20:44)
[2024-04-07] MEDS: SENOKOT-S 2 TABLET PO (22:20)
[2024-04-07 23:57] VITALS: BP 148/68
[2024-04-08 07:17] LABS: % Basophils 0.4 % (0-2); % Eosinophils 4.3 % (0-6); % Immature Granulocytes 0.2 % (0-0.5); % Lymphocytes 20.7 % (20.5-51.1); % Monocytes 10.7 % (1.7-9.3); % Neutrophils 63.7 % (42.2-75.2); Absolute Eosinophils 0.2 10^3/uL (0-0.7); Absolute Monocytes 0.5 10^3/uL (0.1-0.6); Hematocrit 29.3 % (37.0-47.0); Hemoglobin 9.9 g/dL (12.0-16.0); Mean Corp Hgb Conc. 33.8 g/dL (33.0-37.0); Mean Corpuscular Hgb 29.8 pg (27.0-31.0); Mean Corpuscular Volume 88.3 fL (81.0-99.0); Mean Platelet Volume 10.6 fL (7.4-10.4); Nucleated Red Blood Cells % 0 %; Platelet Count 197 10^3/uL (130-400); Red Blood Cell Count 3.32 10^6/uL (4.20-5.40); Red Cell Dist. Width 13.8 % (11.5-14.5); White Blood Cell Count 4.7 10^3/uL (4.8-10.8)
[2024-04-08 07:25] VITALS: BP 158/70
[2024-04-08 07:43] LABS: ALT (SGPT) 10 U/L (0-35); AST (SGOT) 17 U/L (14-36); Albumin 3.6 g/dl (3.5-5.0); Alkaline Phosphatase 107 U/L (38-126); Blood Urea Nitrogen 44 mg/dl (7-17); Calcium 9.4 mg/dl (8.4-10.2); Carbon Dioxide 27 mmol/L (22-30); Chloride 102 mmol/L (98-107); Estimated Creatinine Clearance 14 ml/min; Glucose 100 mg/dl (70-99); Potassium 3.3 mmol/L (3.5-5.1); Sodium 138 mmol/L (135-145); Total Bilirubin 0.6 mg/dl (0.2-1.3); Total Protein 5.8 g/dl (6.3-8.2); eGFR 19.94
[2024-04-08] MEDS: VITAMIN B-12 1000 MCG PO (09:09)
[2024-04-08] MEDS: PROTONIX 40 MG PO (09:09)
[2024-04-08] MEDS: OCUVITE SOFTGEL 1 CAP PO ×2 (09:09→20:12)
[2024-04-08] MEDS: RENVELA 800 MG PO ×3 (09:09→16:44)
[2024-04-08] MEDS: CYMBALTA DELAYED RELEASE 20 MG PO (09:09)
[2024-04-08] MEDS: LIPITOR 40 MG PO (09:09)
[2024-04-08] MEDS: VITAMIN D3 (cholecalciferol) 25 MCG PO (09:10)
[2024-04-08] MEDS: NEURONTIN 100 MG PO (09:10)
[2024-04-08] MEDS: NORVASC 5 MG PO (09:10)
[2024-04-08] MEDS: TOPROL XL 50 MG PO (09:11)
[2024-04-08] MEDS: OCEAN, SALINE MIST 50 SPRAYS NASAL (09:11)
[2024-04-08] MEDS: TYLENOL 500 MG PO ×3 (09:11→22:25)
[2024-04-08] MEDS: APRESOLINE 50 MG PO ×3 (09:11→22:25)
--- NOTE | 2024-04-08 11:12 | W.PN.HOSP.TC ---
Addendum entered and electronically signed by Nasreen Herrera MD 04/08/24 11:51:
given stable hg will resume aspirin now to monitor overnight
Original Note:
Today's Communication/Plan
-
IVF
monitor renal function
Assessment / Plan
Assessment / Plan
#Hematoma left lower leg unclear etiology likely injury (patient cannot recall due to memory impairment)
-CK WNL
-Hold aspirin, likely resume in 1-2 days
-Ultrasound left lower extremity: No DVT. 4.7 cm medial left calf hematoma/seroma
-Hg stable
-neurovascular checks
#JOLIE on CKD 3B/4A
Creat 2.5 > from 1.9 12/31/2023
-Hold Lasix 40 mg daily
-Continue sevelamer 800 mg with meals
-renal/ bladder ultrasound negative for obstruction
-s/p 500cc NS on admission
-discussed briefly with renal, will give gentle IVF overnight given no change in creatinine overnight
#Anemia with reported black stools concern for lower GI bleed
-continue B12
-Hg stable
-iron % low, outpatient work-up if within goals of care
#Hypokalemia likely secondary to volume depletion/diuretics
continue repletion
#Chronic memory impairment with Falls
Oriented to name and daughter but not year, month
-Fall precautions
# chronic macular rash arms legs
#CAD/ PTCA with stent February; readmitted August 2023
#Chronic moderate MR
-s/p 6 months asa/plavix
-resume aspirin tomorrow
-Continue atorvastatin and metoprolol succinate 50 mg daily
#Chronic heart failure reduced EF
#Chronic peripheral edema
I/O, daily weights
-Hold Lasix 40 mg daily
2D echo 01/03/2024 EF 40-45% mild versus moderate reduced LVSF. Basal to mid inferior and inferior lateral hypokinesis, moderate MR
#HTN Primary
-Continue metoprolol succinate 50 mg daily, hydralazine 50 mg p.o. 3 times daily
-adjust meds prn
#GERD
-Continue Pepcid 10 mg daily, Protonix 40 mg daily
#Chronic constipation
-Continue daily senna 2 tabs at bedtime as needed MiraLAX
#Ex-smoker quit 23 years ago
Prior 1 pack a day 50 years
#Arthritis-unknown type
-Continue gabapentin 100 mg daily
#Anxiety
Continue Cymbalta 20 mg daily
#Skin CA status post Mohs
#Glaucoma-continue Systane eyedrops, PreserVision
#Chronic ambulatory dysfunction
Uses walker at baseline
Consult PT/OT
DVT prophylaxis
SCDs
DNR per patient with daughter Gisselle at bedside
d/w with 2 daughters at bedside in details on 04/07
PT/OT
Anticipated Discharge: 24 - 48 hours
Subjective/Interval History
-
Date of Service: April 08, 2024
night was ok
seen with daughter at bedside
no current LE swelling (has dealt with this in past)
no chest pain or shortness of breath
Objective Data
-
Labs:
Laboratory Results
04/08/24
06:41
WBC 4.7 L
Hgb 9.9 L
Hct 29.3 L
Plt Count 197
Sodium 138
Potassium 3.3 L
Chloride 102
Carbon Dioxide 27
BUN 44 H
Creatinine 2.3 H
Glucose 100 H
Calcium 9.4
Total Bilirubin 0.6
AST 17
ALT 10
Alkaline Phosphatase 107
Vital Signs:
Vital Signs
Temp Pulse Resp BP Pulse Ox
97.9 F 77 16 158/70 96
04/08/24 07:25 04/08/24 09:10 04/08/24 07:25 04/08/24 09:10 04/08/24 07:25
I&O
04/07/24 04/08/24 04/09/24
06:59 06:59 06:59
Intake Total 60 / 1230 / 1230
Output Total 200 / 200
Balance 60 / 60 1030 / 1030
Review of Systems
-
History Source: Patient
All other systems: Reviewed and negative
Physical Exam
-
General: No Apparent Distress and Comfortable
Respiratory: Clear to Auscultation
Cardiac: Regular Rhythm and S1/S2; Negative JVD
GI: Soft and Nontender
Musculoskeletal: No Edema and Other (LLE with area hematoma in [place], tender )
Skin: Warm and Dry; Negative Rash
Neuro: AO x 3
Psych: Calm
Data Reviewed
-
Diagnostic Radiology: Report Reviewed by me
Labs: Labs Reviewed by me
[2024-04-08] MEDS: NSS 1000 IV (11:56)
[2024-04-08] MEDS: KCL 20 MEQ PO (11:56)
[2024-04-08] MEDS: LOW STRENGTH ASPIRIN 81 MG PO (12:10)
[2024-04-08 15:56] VITALS: BP 143/60
--- NOTE | 2024-04-08 16:02 | CM ---
CM reviewed chart- multiple outreach attempts to [facility] PCU and no answer/ability to lave VM
Bedside meeting with pt and dtr/Etta
Pt notes she is independent with ambulation with use of a WW or rollator
Staff assist with bathing and medication administration
PCP- Cody Suarez
Rx- listed as [facility], will need to confirm with PCU
PT/OT following with recommendations of PCU return with VN vs no needs
CM will continue to follow for dc planning
[facility]
[2024-04-08] MEDS: SENOKOT-S PO (20:11)
[2024-04-08] MEDS: REFRESH EYE DROPS (PF) 1 DROPS BOTH EYES (20:12)
[2024-04-08 23:32] VITALS: BP 158/77
--- NOTE | 2024-04-09 03:05 | PTCARENOTE ---
When pt having BM- missed hat, unable to heme test. Did have small amount of bright red blood present on toilet paper. Pt stating HX of hemorrhoids. In for labs this AM. 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
[2024-04-09 06:47] VITALS: BMI 20.7
[2024-04-09 06:56] LABS: % Basophils 0.4 % (0-2); % Eosinophils 4.5 % (0-6); % Immature Granulocytes 0.2 % (0-0.5); % Monocytes 11.3 % (1.7-9.3); % Neutrophils 63.6 % (42.2-75.2); Absolute Eosinophils 0.2 10^3/uL (0-0.7); Absolute Lymphocytes 0.9 10^3/uL (1.2-3.4); Absolute Monocytes 0.5 10^3/uL (0.1-0.6); Hematocrit 27.2 % (37.0-47.0); Hemoglobin 8.9 g/dL (12.0-16.0); Mean Corp Hgb Conc. 32.7 g/dL (33.0-37.0); Mean Corpuscular Hgb 29.4 pg (27.0-31.0); Mean Corpuscular Volume 89.8 fL (81.0-99.0); Mean Platelet Volume 10.6 fL (7.4-10.4); Nucleated Red Blood Cells % 0 %; Platelet Count 188 10^3/uL (130-400); Red Blood Cell Count 3.03 10^6/uL (4.20-5.40); Red Cell Dist. Width 13.9 % (11.5-14.5); White Blood Cell Count 4.7 10^3/uL (4.8-10.8)
[2024-04-09 07:30] VITALS: BP 161/74
[2024-04-09 07:51] LABS: Blood Urea Nitrogen 39 mg/dl (7-17); Carbon Dioxide 27 mmol/L (22-30); Chloride 105 mmol/L (98-107); Estimated Creatinine Clearance 15 ml/min; Glucose 90 mg/dl (70-99); Potassium 3.7 mmol/L (3.5-5.1); Sodium 140 mmol/L (135-145); eGFR 21.04
[2024-04-09] MEDS: RENVELA 800 MG PO ×2 (08:20→11:57)
[2024-04-09] MEDS: VITAMIN B-12 1000 MCG PO (08:20)
[2024-04-09] MEDS: CYMBALTA DELAYED RELEASE 20 MG PO (08:20)
[2024-04-09] MEDS: PROTONIX 40 MG PO (08:21)
[2024-04-09] MEDS: ASPIR LOW (ENTERIC COATED) 81 MG PO (08:21)
[2024-04-09] MEDS: OCUVITE SOFTGEL 1 CAP PO (08:21)
[2024-04-09] MEDS: LIPITOR 40 MG PO (08:21)
[2024-04-09] MEDS: APRESOLINE 50 MG PO (08:21)
[2024-04-09] MEDS: TOPROL XL 50 MG PO (08:21)
[2024-04-09] MEDS: TYLENOL 500 MG PO (08:21)
[2024-04-09] MEDS: NEURONTIN 100 MG PO (08:21)
[2024-04-09] MEDS: VITAMIN D3 (cholecalciferol) 25 MCG PO (08:22)
[2024-04-09] MEDS: REFRESH EYE DROPS (PF) 1 DROPS BOTH EYES (08:22)
[2024-04-09] MEDS: NORVASC 5 MG PO (08:22)
[2024-04-09] MEDS: OCEAN, SALINE MIST 2 SPRAYS NASAL (09:21)
[2024-04-09 11:31] LABS: Hemoglobin 9.7 g/dL (12.0-16.0)
--- NOTE | 2024-04-09 11:46 | W.PN.HOSP.TC ---
Today's Communication/Plan
-
OK for DC today
Assessment / Plan
Assessment / Plan
#Hematoma left lower leg unclear etiology likely injury (patient cannot recall due to memory impairment)
-Ultrasound left lower extremity: No DVT. 4.7 cm medial left calf hematoma/seroma
-CK WNL
-Hg stable (outlier this AM)
-neurovascular checks
-ice; LLE elevation
-OK for DC
#JOLIE on CKD 3B/4A
Creat 2.5 improved to 2.2 this AM
-renal/ bladder ultrasound negative for obstruction
-urine sodium low
-Hold Lasix 40 mg daily now and at ID. *patient was on lasix for LE swelling and has no swelling now. will get close follow up labs and outpatient physicians to determine when/if lasix should be resumed
-Continue sevelamer 800 mg with meals
#Anemia with reported black stools concern for lower GI bleed
-continue B12
-Hg stable
-repeat CBC outpatient
#Hypokalemia likely secondary to volume depletion/diuretics
continue repletion
#Chronic memory impairment with Falls
Oriented to name and daughter but not year, month
-Fall precautions
# chronic macular rash arms legs
#CAD/ PTCA with stent February; readmitted August 2023
#Chronic moderate MR
-s/p 6 months asa/plavix
-resume aspirin tomorrow
-Continue atorvastatin and metoprolol succinate 50 mg daily
#Chronic heart failure reduced EF
#Chronic peripheral edema
I/O, daily weights
-Hold Lasix 40 mg daily
2D echo 01/03/2024 EF 40-45% mild versus moderate reduced LVSF. Basal to mid inferior and inferior lateral hypokinesis, moderate MR
#HTN Primary
-Continue metoprolol succinate 50 mg daily, hydralazine 50 mg p.o. 3 times daily
-adjust meds prn
#GERD
-Continue Pepcid 10 mg daily, Protonix 40 mg daily
#Chronic constipation
-Continue daily senna 2 tabs at bedtime as needed MiraLAX
#Ex-smoker quit 23 years ago
Prior 1 pack a day 50 years
#Arthritis-unknown type
-Continue gabapentin 100 mg daily
#Anxiety
Continue Cymbalta 20 mg daily
#Skin CA status post Mohs
#Glaucoma-continue Systane eyedrops, PreserVision
#Chronic ambulatory dysfunction
Uses walker at baseline
Consult PT/OT
DVT prophylaxis
SCDs
DNR per patient with daughter Gisselle at bedside
d/w with 2 daughters at bedside in details on 04/07
PT/OT
Anticipated Discharge: Today
Subjective/Interval History
-
Date of Service: April 09, 2024
hematoma improving per daughter
no chest pain or shortness of breath
no LE swelling
Objective Data
-
Labs:
Laboratory Results
04/09/24 04/09/24
06:25 11:10
WBC 4.7 L
Hgb 8.9 L 9.7 L
Hct 27.2 L
Plt Count 188
Sodium 140
Potassium 3.7
Chloride 105
Carbon Dioxide 27
BUN 39 H
Creatinine 2.2 H
Glucose 90
Calcium 9.0
Vital Signs:
Vital Signs
Temp Pulse Resp BP Pulse Ox
97.9 F 81 16 161/74 95
04/09/24 07:30 04/09/24 08:21 04/09/24 07:30 04/09/24 08:21 04/09/24 07:30
I&O
04/08/24 04/09/24 04/10/24
06:59 06:59 06:59
Intake Total 1230 / 1230 720 / 720
Output Total 200 / 200
Balance 1030 / 1030 720 / 720
Review of Systems
-
History Source: Patient
All other systems: Reviewed and negative
Physical Exam
-
General: No Apparent Distress and Comfortable
Respiratory: Clear to Auscultation
Cardiac: Regular Rhythm and S1/S2; Negative JVD
GI: Soft and Nontender
Musculoskeletal: No Edema and Other (LLE with area hematoma in [place], tender; dp pulse 2+, sensation in tact )
Skin: Warm and Dry; Negative Rash
Neuro: AO x 3
Psych: Calm
Data Reviewed
-
Diagnostic Radiology: Report Reviewed by me
Labs: Labs Reviewed by me
--- NOTE | 2024-04-09 11:56 | W.DS.TRANS ---
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
-
Discharge Instructions:
Discharge Diagnosis/Procedures left calf hematoma; acute on chronic kidney
disease
Diet Low Cholesterol
Activity As tolerated
Driving Restrictions As prior to admission
Bathing Restrictions None
Blood Work CBC and BMP to be obtained by VN on Wednesday
Other Services VN,PT
Specialty Instructions Weigh Daily
Instructions:
Stand-Alone Forms:
Changes to Home Medications: Yes
Discharge Medications:
DC Medications w/original date entered in [employer]
aspirin 81 mg tablet,delayed release 81 mg PO DAILY Blood clot prevention/tx 09/22/22
duloxetine 20 mg capsule,delayed release (Cymbalta) 20 mg PO DAILY Mental Health 09/22/22
polyethylene glycol 3350 17 gram/dose oral powder (Miralax) 17 g PO DAILYPRN PRN constipation 09/22/22
gabapentin 100 mg capsule 100 mg PO DAILY Pain 03/20/23
furosemide 40 mg tablet 40 mg PO DAILY Fluid retention/Swelling 30 days #30 tabs 03/27/23
pantoprazole 40 mg tablet,delayed release 40 mg PO DAILY Gastrointestinal issue 30 days #30 tabs 03/27/23
atorvastatin 40 mg tablet 40 mg PO DAILY High cholesterol 08/30/23
cholecalciferol (vitamin D3) 25 mcg (1,000 unit) tablet (Vitamin D3) 25 mcg PO DAILY Supplement 08/30/23
cyanocobalamin (vitamin B-12) 1,000 mcg tablet 1,000 mcg PO DAILY Supplement 08/30/23
fluticasone propionate 50 mcg/actuation nasal spray,suspension 1 spray intranasal DAILYPRN PRN allergies 08/30/23
bismuth subsalicylate 262 mg/15 mL oral suspension (Pepto-Bismol) 524 mg PO Q6HPRN PRN stomach upset 12/31/23
famotidine 10 mg tablet 10 mg PO DAILY Gastrointestinal Issue 12/31/23
famotidine 10 mg tablet 10 mg PO DAILY PRN gerd 12/31/23
lidocaine 4 % topical patch 1 patch topical DAILY apply to right hip 12/31/23
metoprolol succinate 50 mg tablet,extended release 24 hr 50 mg PO DAILY Blood Pressure 12/31/23
peg 400-propylene glycol (PF) 0.4 %-0.3 % eye drops in a dropperette (Systane (PF)) 1 drp BOTH EYES BID Eye Condition 12/31/23
sevelamer carbonate 800 mg tablet 800 mg PO AC Kidney Disease 12/31/23
sodium chloride 0.65 % nasal spray aerosol (Saline Nasal) 1 spray intranasal DAILY Congestion 12/31/23
vit C 250 mg-vit E 90 mg-zinc 40 mg-copper 1 [id number] capsule (PreserVision AREDS-2) 1 cap PO BID Supplement 12/31/23
acetaminophen 500 mg tablet (Pain Relief Extra Strength (acetaminophen)) 500 mg PO TID Pain 04/06/24
amlodipine 10 mg tablet 5 mg PO DAILY Blood Pressure 04/06/24
hydralazine 50 mg tablet 50 mg PO TID Blood Pressure 04/06/24
sennosides 8.6 mg-docusate sodium 50 mg tablet (Senna-S) 2 tab-cap PO HS Constipation 04/06/24
Home Medication Changes
holding lasix
Pending Results: No
[2024-04-09 12:01] VITALS: BP 164/74
--- NOTE | 2024-04-09 13:18 | W.DCSUMMARY ---
Discharge Summary
Discharge Data
Date of Admission: 04/06/24
Date of Discharge: 04/09/24
-
Pending Results: No
Hospital Course
Discharging Physician : Dr. Nasreen Herrera
Disposition : Home with Home Health
Primary care physician : Dr. Coyd Suarez
Principal Discharge diagnosis : acute on chronic kidney disease; left calf hematoma
Hospital Course :
Ms. Susan Loredo is a 88-year-old female past medical history of dementia, tobacco use, CAD (s/p STEMI 03/16), primary hypertension, hyperlipidemia who presented with leg pain found to have left calf hematoma, couldn't remember injury. Triage
vitals stable, labs with Hg 9.9, Na 137, K+ 3.0, Cr 2.5 (was 1.9 12/31/23). She was admitted to medicine for further monitoring of hematoma and renal function.
Hematoma remained stable with neurovascular checks intact. After 48 hours off aspirin 81mg, this was resumed given significant cardiac hx. Her Hg has remained stable and hematoma improving on exam. She is told she can apply ice packs and to keep
leg elevated.
Regarding JOLIE, urine studies suggest pre-renal with urine sodium 21 (off of lasix). Her lasix was held and she was given gentle IVF with improvement to 2.2. Given patient has no lower extremity swelling (which is how she presents with heart
failure per daughter), I will continue to hold lasix on discharge with close follow up labs. Based on repeat labs and exam, decision to be made by outpatient providers on when and if lasix should be resumed. Given history of hospital acquired
delirium and eagerness for discharge, plan made to discharge patient today with close follow up labs.
Time spent on discharge was 35 minutes.
Important imaging findings :
Peripheral Vascular US 04/06/24
IMPRESSION: No evidence of deep venous thrombosis.
4.7 cm medial left calf hematoma/seroma
Renal US 04/07/24
IMPRESSION:
Unremarkable sonographic appearance of the kidneys and bladder, noting exophytic cyst arising from the lower pole of the right kidney measuring up to 3.9 cm.
Procedure findings :
Discharge Plan
-
Patient Disposition: Home with Home Care
Discharge Diagnosis/Procedures: left calf hematoma; acute on chronic kidney disease
Diet: Low Cholesterol
Activity: As tolerated
Driving Restrictions: As prior to admission
Bathing Restrictions: None
Blood Work: CBC and BMP to be obtained by VN on Wednesday04/12/24
Other Services: VN and PT
Specialty Instructions: Weigh Daily- Call MD for wt gain/loss 3 lbs overnight/5 lbs in 1 week
Referrals:
Cody Suarez MD [Family Provider] - in less than 1 week
Additional Discharge Medication Instructions: Do not take Lasix. Reach out to your PCP if you notice increased leg swelling and/or shortness of breath. If this happens your lasix may be resumed sooner. We will repeat labs on Thursday 04/12.
Based on these results and your exam, Dr. Suarez will determine when and if you resume lasix.
Prescriptions:
Continued
duloxetine [Cymbalta] 20 mg Capsule,Delayed Release(Dr/Ec)
20 mg PO DAILY
aspirin 81 mg Tablet,Delayed Release (Dr/Ec)
81 mg PO DAILY
polyethylene glycol 3350 [Miralax] 17 gram/dose Powder
17 g PO DAILYPRN PRN (Reason: constipation)
gabapentin 100 mg capsule
100 mg PO DAILY
pantoprazole 40 mg Tablet,Delayed Release (Dr/Ec)
40 mg PO DAILY 30 Days Qty: 30 0RF
cyanocobalamin (vitamin B-12) 1,000 mcg Tablet
1,000 mcg PO DAILY
fluticasone propionate 50 mcg/actuation [place],Suspension
1 spray INTRANASAL DAILYPRN PRN (Reason: allergies)
cholecalciferol (vitamin D3) [Vitamin D3] 25 mcg (1,000 unit) Tablet
25 mcg PO DAILY
atorvastatin 40 mg tablet
40 mg PO DAILY
famotidine 10 mg Tablet
10 mg PO DAILY PRN (Reason: gerd)
famotidine 10 mg Tablet
10 mg PO DAILY
metoprolol succinate 50 mg Tablet Extended Release 24 Hr
50 mg PO DAILY
bismuth subsalicylate [Pepto-Bismol] 262 mg/15 mL Suspension
524 mg PO Q6HPRN PRN (Reason: stomach upset)
Saline Nasal 0.65 % Aerosol,[place]
1 spray INTRANASAL DAILY
Systane (PF) 0.4-0.3 % Dropperette
1 drp BOTH EYES BID
PreserVision AREDS-2 250-90-40-1 mg Capsule
1 cap PO BID
lidocaine 4 % adhesive patch,medicated
1 patch topical DAILY
sevelamer carbonate 800 mg tablet
800 mg PO AC
sennosides-docusate sodium [Senna-S] 8.6-50 mg Tablet
2 tab-cap PO HS
hydralazine 50 mg Tablet
50 mg PO TID
acetaminophen [Pain Relief ES (acetaminophen)] 500 mg tablet
500 mg PO TID
amlodipine 10 mg tablet
5 mg PO DAILY
Held
furosemide 40 mg Tablet
40 mg PO DAILY 30 Days Qty: 30 0RF
Hold Instructions: Resume on 04/13/24. *DO NOT RESUME UNTIL DIRECTED BY YOUR OUTPATIENT PHYSICIAN
Discharge Orders:
Discharge Patient (As Directed); Ordered 04/09/24
Ordered By: Nasreen Herrera
Discharge Date and Time
Print Language: PERSIAN
--- NOTE | 2024-04-09 13:20 | CM ---
CM reviewed chart and noted dc order
Call with [facility] PCU/[facility]
PT/OT evals faxed and pt accepted back for admission today
Bedside update to pt and dtr
IMM verbally reviewed-copy provided
Dtr will transport
VN order placed in dc packet per PCU request- they will set up and refer for pt
Discharge Disposition- return [facility] PCU, will they set up VN with [facility] (they declined CM referral)
Phone- [phone] Fax- [phone]
== END 2024-04-09 13:36 | disposition home health service (06) | DRG 605 ==
LOC: 4 EAST ACU 15:31
PROVIDERS: Clinical Nurse Specialist Family Health; Physician Assistant Medical; ADMITTING PHYSICIAN Hospitalist; ATTENDING PHYSICIAN Student in an Organized Health Care Education/Training Program; EMERGENCY PHYSICIAN Emergency Medicine; FAMILY PHYSICIAN Internal Medicine
DX: S80.12XA Contusion of left lower leg, initial encounter (principal); N17.9 Acute kidney failure, unspecified; F03.94 Unspecified dementia, unspecified severity, with anxiety; I13.0 Hypertensive heart and chronic kidney disease with heart failure and stage 1 through stage 4 chronic kidney disease, or unspecified chronic kidney disease; I50.22 Chronic systolic (congestive) heart failure; F05 Delirium due to known physiological condition; K92.2 Gastrointestinal hemorrhage, unspecified; E87.6 Hypokalemia; N18.32 Chronic kidney disease, stage 3b; E78.00 Pure hypercholesterolemia, unspecified; K21.9 Gastro-esophageal reflux disease without esophagitis; K22.70 Barrett's esophagus without dysplasia; R26.2 Difficulty in walking, not elsewhere classified; D64.9 Anemia, unspecified; E86.9 Volume depletion, unspecified; K59.09 Other constipation; H40.9 Unspecified glaucoma; X58.XXXA Exposure to other specified factors, initial encounter; R29.6 Repeated falls; I25.10 Atherosclerotic heart disease of native coronary artery without angina pectoris; M19.90 Unspecified osteoarthritis, unspecified site; Z66 Do not resuscitate; I25.2 Old myocardial infarction; Z87.891 Personal history of nicotine dependence; Z85.828 Personal history of other malignant neoplasm of skin; Z79.82 Long term (current) use of aspirin; Z95.5 Presence of coronary angioplasty implant and graft; Z88.5 Allergy status to narcotic agent
CPT/HCPCS: 76770; 80048; 80053; 81099; 82550; 82570; 82607; 82728; 82746; 83540; 83550; 83735; 83935; 84300; 85018; 85025; 85610; 85730; 86850; 86900; 86901; 87070; 93971; 97162; 97166; 99284

== ENCOUNTER 2024-10-21 18:14 | Emergency (ER) | payer MEDICARE, SELFPAY ==
[2024-10-21 18:33] VITALS: BP 172/74
[2024-10-21 18:48] LABS: % Basophils 0.4 % (0-2); % Eosinophils 2.5 % (0-6); % Immature Granulocytes 0.4 % (0-0.5); % Lymphocytes 15.1 % (20.5-51.1); % Monocytes 8.8 % (1.7-9.3); % Neutrophils 72.8 % (42.2-75.2); Absolute Eosinophils 0.1 10^3/uL (0-0.7); Absolute Lymphocytes 0.8 10^3/uL (1.2-3.4); Absolute Monocytes 0.5 10^3/uL (0.1-0.6); Absolute Neutrophils 4.1 10^3/uL (1.4-6.5); Hematocrit 28.8 % (37.0-47.0); Hemoglobin 9.3 g/dL (12.0-16.0); Mean Corp Hgb Conc. 32.3 g/dL (33.0-37.0); Mean Corpuscular Hgb 30.8 pg (27.0-31.0); Mean Corpuscular Volume 95.4 fL (81.0-99.0); Nucleated Red Blood Cells % 0 %; Platelet Count 192 10^3/uL (130-400); Red Blood Cell Count 3.02 10^6/uL (4.20-5.40); Red Cell Dist. Width 13.3 % (11.5-14.5); White Blood Cell Count 5.6 10^3/uL (4.8-10.8)
[2024-10-21 19:04] LABS: AST (SGOT) 24 U/L (14-36); Alkaline Phosphatase 111 U/L (38-126); Blood Urea Nitrogen 39 mg/dl (7-17); Carbon Dioxide 24 mmol/L (22-30); Chloride 104 mmol/L (98-107); Glucose 94 mg/dl (70-99); Total Bilirubin 0.3 mg/dl (0.2-1.3); Total Protein 6.3 g/dl (6.3-8.2); eGFR 22.11
[2024-10-21 19:14] LABS: ALT (SGPT) 26 U/L (0-35); Albumin 4.1 g/dl (3.5-5.0); Calcium 8.6 mg/dl (8.4-10.2); Potassium 3.5 mmol/L (3.5-5.1); Sodium 139 mmol/L (135-145)
--- NOTE | 2024-10-21 22:21 | ED.GENMED ---
History of Present Illness
General
Chief Complaint: Chest Pain
Source: patient and family (Daughter and son-in-law)
Exam Limitations: none
Time Seen by Provider: 10/21/24 22:15
Nursing documentation reviewed up to this point in time: agreed with
History of Present Illness
History of Present Illness:
89-year-old female presents emergency room due to chest pain. She was sitting down when this occurred. She was given aspirin 324 and nitro, her pain has decreased. Her chest is tender to touch. This feels different from when she had a heart
attack.
Past History
Past History
ED Past Medical History: Cancer (Skin), HTN, Hypercholesterolemia and [place]; Negative CAD
ED Past Surgical History: Orthopedic
Social History
Tobacco: Former smoker
Alcohol: None
Drug: None
Personal:
Living: alone
Review of Systems
Review of Systems
Allergies reviewed?: Yes
All Other Systems: Not applicable
Constitutional: Reports no symptoms
EENT: Reports no symptoms
Respiratory: Reports no symptoms
Cardiac: Reports chest pain
ABD/GI: Reports no symptoms
: Reports no symptoms
Musculoskeletal: Reports no symptoms
Skin: Reports no symptoms
Neurological: Reports no symptoms
Endocrine: Reports no symptoms
Hematologic/Lymphatic: Reports no symptoms
Psychiatric: Reports no symptoms
Phy Exam
Physical Exam
Physical Exam:
Physical Exam
General: no apparent distress, not acutely ill
Neck: supple. no meningeal signs. normal posterior pharynx
Heart: s1/s2 regular rate and rhythm, no murmur. equal radial
pulses.
HEENT: Pupils equal round reactive to light, EOMI
Lungs: no acute respiratory distress. clear bilaterally, chest wall tender to palpation, reproducing pain
Abdomen: normal bowel sounds. not tender. no CVAT
Neuro: alert and oriented. no focal neurological deficits cranial nerves II through XII intact
Skin: no rash
Psychiatric: well kept. interactive and cooperative
Extremities: no edema. no calf tenderness. negative homans. good distal pulses
Scores
Heart Score for Chest Pain Patients
STEMI patient?: No
History: Slightly or Non-Suspicious
ECG: Normal
Age: >/= 65 years
Risk Factors: >/= 3 Risk Factors or History of CAD
Troponin: </= Normal Limit
Heart Score for Chest Pain Patients: 4
Heart Score Risk: 20.3% MACE over next 6 weeks
Course
Orders/Labs/Results
Orders:
Orders
10/21/24 18:15
EKG [Electrocardiogram (*1)] Stat
Reason for Study: Chest Pain
EKG- Treatment ONCE
10/21/24 18:41
Complete Blood Count/With Diff Urgent
Comprehensive Metabolic Panel Urgent
Troponin I Urgent
10/21/24 19:00
CXR2 [CR Chest - 2 Views ] Urgent
Comment:
Reason For Exam: chest pain
10/21/24 23:08
Troponin I Urgent
Abnormal Lab Results
10/21/24
18:41
RBC 3.02 L 10^6/uL
(4.20-5.40)
Hgb 9.3 L g/dL
(12.0-16.0)
Hct 28.8 L %
(37.0-47.0)
MCHC 32.3 L g/dL
(33.0-37.0)
Absolute Lymphs (auto) 0.8 L 10^3/uL
(1.2-3.4)
Lymphocytes % 15.1 L %
(20.5-51.1)
BUN 39 H mg/dl
(7-17)
Creatinine 2.1 H mg/dL
(0.6-1.0)
10/21/24 18:41
10/21/24 18:41
Vital Signs
Initial and Last Documented VS:
Initial Vital Signs
Temp Pulse Resp BP Pulse Ox
98.1 F 66 18 172/74 99
10/21/24 18:33 10/21/24 18:33 10/21/24 18:33 10/21/24 18:33 10/21/24 18:33
Last Documented Vital Signs
Temp Pulse Resp BP Pulse Ox
98.1 F 65 22 171/54 97
10/21/24 18:33 10/22/24 00:30 10/22/24 00:30 10/22/24 00:00 10/22/24 00:30
MDM/Problems Addressed
Differential Diagnosis Includes:
ACS, chest wall pain, PE
MDM/Problems Addressed:
89-year-old female with chest pain, suspect more likely chest wall pain. No EKG changes. Chest wall tender to palpation, reproducing pain. Serial troponins negative. Will discharge to follow-up with cardiology. Return precautions given.
Chronic conditions affecting care: CAD
*Radiology
Radiology exam reviewed: radiology read reviewed (Chest x-ray no acute findings)
*Pulse Oximetry
Patient hypoxic: no
*EKG
Interpreted by ED Provider?: Yes
EKG Intrepretation Date: 10/21/24
EKG Intrepretation Time: 18:22
Interpretation: abnormal
Comparison EKG: no changes
Heart Rate: 70
Rate: normal
Rhythm: sinus
[place]: normal axis
Interval: normal interval
QRS Pattern: normal QRS
Ischemia: non-specific ST changes
*It Desktop Support Specialist Interpretation
Rate: normal
Interpretation: normal
Heart Rate: 64
Rhythm: sinus
*Critical Care Note
Total Time (30-74mins, 75-104mins- exclusive of procedures): Not Applicable
Data Reviewed
Review of Other/Old Records Reveals: Operative Reports (Cardiac catheterization 03/21/2023, no stents placed, RCA stent seen patent)
Source: records
Patient Management
Social determinants of health affecting care: Living situation and Strong social support
Escalation/DeEscalation of care consider admission/obs:
Admission not indicated
ED Attending Note
-
Portions of this chart may have been created with voice recognition software.� Occasional wrong word or��sound alike� substitutions may have occurred due to the inherent limitations of voice recognition software.
Discharge Plan
Departure
Patient Disposition: Home (Routine Discharge)
Date of Disposition: 10/22/24
Time of Disposition: 00:57
Patient with high blood pressure during this ER visit?: Yes
Condition: Good
Discharge Problem:
Chest pain
Instructions: Chest Pain CBC Follow Up, BLOOD PRESSURE
Prescriptions:
No Action
duloxetine [Cymbalta] 20 mg Capsule,Delayed Release(Dr/Ec)
20 mg PO DAILY
aspirin 81 mg Tablet,Delayed Release (Dr/Ec)
81 mg PO DAILY
polyethylene glycol 3350 [Miralax] 17 gram/dose Powder
17 g PO DAILYPRN PRN (Reason: constipation)
gabapentin 100 mg capsule
100 mg PO DAILY
furosemide 40 mg Tablet
40 mg PO DAILY 30 Days Qty: 30 0RF
pantoprazole 40 mg Tablet,Delayed Release (Dr/Ec)
40 mg PO DAILY 30 Days Qty: 30 0RF
cyanocobalamin (vitamin B-12) 1,000 mcg Tablet
1,000 mcg PO DAILY
fluticasone propionate 50 mcg/actuation [place],Suspension
1 spray INTRANASAL DAILYPRN PRN (Reason: allergies)
cholecalciferol (vitamin D3) [Vitamin D3] 25 mcg (1,000 unit) Tablet
25 mcg PO DAILY
atorvastatin 40 mg tablet
40 mg PO DAILY
famotidine 10 mg Tablet
10 mg PO DAILY PRN (Reason: gerd)
famotidine 10 mg Tablet
10 mg PO DAILY
metoprolol succinate 50 mg Tablet Extended Release 24 Hr
50 mg PO DAILY
bismuth subsalicylate [Pepto-Bismol] 262 mg/15 mL Suspension
524 mg PO Q6HPRN PRN (Reason: stomach upset)
Saline Nasal 0.65 % Aerosol,[place]
1 spray INTRANASAL DAILY
Systane (PF) 0.4-0.3 % Dropperette
1 drp BOTH EYES BID
PreserVision AREDS-2 250-90-40-1 mg Capsule
1 cap PO BID
lidocaine 4 % adhesive patch,medicated
1 patch topical DAILY
sevelamer carbonate 800 mg tablet
800 mg PO AC
sennosides-docusate sodium [Senna-S] 8.6-50 mg Tablet
2 tab-cap PO HS
hydralazine 50 mg Tablet
50 mg PO TID
acetaminophen [Pain Relief ES (acetaminophen)] 500 mg tablet
500 mg PO TID
amlodipine 10 mg tablet
5 mg PO DAILY
Referrals:
Cody Suarez MD [Family Provider] -
Interventions
Interventions:
*Risk Screen - Suicide Last Done: 10/21/24 18:33
*General Assessment Last Done: 10/21/24 18:33
ED- Fall Risk Assessment Last Done: 10/21/24 22:25
*ED COVID-19 Vaccine History Last Done: 10/21/24 18:33
ED- Cardiac Assessment Last Done: 10/21/24 22:25
Discharge Date and Time
Print Language: ROMANSH
[2024-10-21 23:40] LABS: Troponin I 0.027 ng/ml
[2024-10-22] VITALS: BP 171/54
[2024-10-22 01:00] VITALS: BP 176/72
== END 2024-10-22 01:20 | disposition home or self-care (01) ==
LOC: EMR 18:14
PROVIDERS: Emergency Medicine; EMERGENCY PHYSICIAN Emergency Medicine; FAMILY PHYSICIAN Internal Medicine
DX: R07.9 Chest pain, unspecified (principal); I10 Essential (primary) hypertension; E78.00 Pure hypercholesterolemia, unspecified; Z85.828 Personal history of other malignant neoplasm of skin; I25.2 Old myocardial infarction; Z87.891 Personal history of nicotine dependence
CPT/HCPCS: 99285; 71046; 80053; 84484; 85025; 93005